=== PATIENT | female | born 1985 | race Caucasian/White ===

== ENCOUNTER → 2016-11-28 | Outpatient (CLI) | payer BC ==
[~2016-11-28] MED LIST: ACET50TA PO; COLA100C PO; IBUP-1114 PO; IBUP600T26 PO; NORC5TAB PO; NORCOTAB PO; PERC5TAB6 PO
[2016-11-28 13:34] LABS: BASO % 0.2 % (0.0-1.0); EOS # 0.2 K/mm3 (0.0-0.50); EOS % 2.4 % (0.0-3.0); LARGE UNSTAINED CELL # 0.1 K/mm3 (0.0-0.4); LARGE UNSTAINED CELL % 0.9 % (0.0-4.0); LYMPH # 0.9 K/mm3 (1.5-4.5); MEAN CORPUSCULAR HEMOGLOBIN 24.3 pg (27.0-33.0); MEAN CORPUSCULAR HGB CONC 31.1 g/dl (32.0-36.5); MEAN CORPUSCULAR VOLUME 78.1 fl (80.0-96.0); MONO # 0.3 K/mm3 (0.0-0.8); MONO % 5.1 % (0.0-5.0); NEUTROPHILS # 5.1 K/mm3 (1.8-7.7); NEUTROPHILS % 78.3 % (36.0-66.0); PLATELET COUNT, AUTOMATED 216 k/mm3 (150-450); RED CELL DISTRIBUTION WIDTH 15.8 % (11.5-14.5); WHITE BLOOD COUNT 6.5 K/mm3 (4.0-10.0)
[2016-11-28 14:27] LABS: HBsAg Prenatal NEGATIVE (NEGATIVE)
[2016-11-28 14:53] LABS: HIV SCREEN CENTAUR NEGATIVE (NEGATIVE)
== END ==
LOC: M SMT 11:43
PROVIDERS: ATTEND Obstetrics & Gynecology
DX: Z36 Encounter for antenatal screening of mother (principal); Z3A.00 Weeks of gestation of pregnancy not specified

== ENCOUNTER → 2017-02-07 | Outpatient (CLI) | payer BC ==
[~2017-02-07] MED LIST changes: -COLA100C PO; +COLA100C3 PO; +NORC1TAB4 PO; -NORC5TAB PO
--- NOTE | 2017-02-08 03:06 | REP ---
Clinical: Anatomical evaluation. Comparison: 12/14/2016 . Findings: Examination demonstrates a single live intrauterine in variable presentation. motion is identified by technologist. Placenta is noted anteriorly and grade zero and 1.3 cm from the closed internal os. Amniotic fluid volume is normal. Cervix measures 3.3 cm in length and appears closed. No evidence for nuchal cord. Gestational age by LMP 19 weeks 1 day with GREG 07/03/2017 . Gestational age by current measurements 20 weeks 0 days with GREG 06/27/2017 . FHR equals 168 beats per minute. Estimated weight 349 grams (>97 percentile). Anatomical assessment demonstrates normal structures including cranium, choroid plexus, cavum, cerebellum/posterior fossa, facial features, lungs, diaphragm, stomach, cord insertion/three-vessel cord, kidneys/bladder, spine, and extremities. Impression: 1. Marginal placenta previa approximately 1.3 cm from the closed internal os. 2. Estimated weight is greater than 97 percentile based on age by LMP. 3. Limited evaluation of the heart/ventricular outflow tracts. Signed by Jorge Harman MD 02/08/2017 02:57 A
== END ==
LOC: M SMT 11:12
PROVIDERS: ATTEND Obstetrics & Gynecology
DX: Z31.430 Encounter of female for testing for genetic disease carrier status for procreative management (principal); Z3A.19 19 weeks gestation of pregnancy

== ENCOUNTER → 2017-02-28 | Outpatient (CLI) | payer BC ==
[~2017-02-28] MED LIST changes: -COLA100C3 PO; +COLA100C5 PO; +IBUP-1022 PO; -IBUP600T26 PO; +IRON65TA PO; +OXYC1TAB23 PO; +PERC5TAB12 PO; -PERC5TAB6 PO; +PREN1TAB11 PO
--- NOTE | 2017-02-28 11:50 | REP ---
Clinical: Anatomical evaluation. Comparison: 02/07/2017 . Findings: Examination demonstrates a single live intrauterine in variable presentation. motion is identified by technologist. Placenta is noted posteriorly and grade zero without evidence for placenta previa or abruption. Amniotic fluid volume is normal. Cervix measures 4.8 cm in length and appears closed. No evidence for nuchal cord. Gestational age by LMP 22 weeks 1 day with GREG 07/03/2017 . Gestational age by current measurements 23 week 6 days with GREG 06/21/2017 . FHR equals 163 beats per minute. Estimated weight 685 grams (90th percentile based on age by current measurements). Anatomical assessment demonstrates normal structures including cranium, choroid plexus, cavum, cerebellum/posterior fossa, facial features, lungs, four-chamber heart/ventricular outflow tracts, diaphragm, stomach, cord insertion/three-vessel cord, kidneys/bladder, spine, and extremities. Impression: 1. Single live intrauterine in variable presentation demonstrating appropriate interval growth when compared to first ultrasound. 2. Anatomical assessment is complete and normal. Signed by Jorge Harman MD 02/28/2017 11:41 A
== END ==
LOC: M RAD 10:31
PROVIDERS: ATTEND Advanced Practice Midwife
DX: Z36 Encounter for antenatal screening of mother (principal); Z3A.23 23 weeks gestation of pregnancy

== ENCOUNTER → 2017-03-28 | Outpatient (CLI) | payer BC ==
[2017-03-28 14:03] LABS: BASO % 0.4 % (0.0-1.0); EOS # 0.3 K/mm3 (0.0-0.50); EOS % 4.1 % (0.0-3.0); LARGE UNSTAINED CELL # 0.1 K/mm3 (0.0-0.4); LARGE UNSTAINED CELL % 1.1 % (0.0-4.0); LYMPH # 0.9 K/mm3 (1.5-4.5); LYMPH % 12.5 % (24.0-44.0); MEAN CORPUSCULAR HEMOGLOBIN 24.7 pg (27.0-33.0); MEAN CORPUSCULAR HGB CONC 31.4 g/dl (32.0-36.5); MEAN CORPUSCULAR VOLUME 78.6 fl (80.0-96.0); MONO # 0.3 K/mm3 (0.0-0.8); MONO % 4.8 % (0.0-5.0); NEUTROPHILS # 5.1 K/mm3 (1.8-7.7); NEUTROPHILS % 77.1 % (36.0-66.0); PLATELET COUNT, AUTOMATED 208 k/mm3 (150-450); RED CELL DISTRIBUTION WIDTH 15.1 % (11.5-14.5); WHITE BLOOD COUNT 6.6 K/mm3 (4.0-10.0)
== END ==
LOC: M SMT 09:05
PROVIDERS: ATTEND Advanced Practice Midwife
DX: Z34.83 Encounter for supervision of other normal pregnancy, third trimester (principal); Z3A.00 Weeks of gestation of pregnancy not specified

== ENCOUNTER → 2017-06-04 | Outpatient (CLI) | payer BC ==
[2017-06-04 20:16] LABS: MEAN CORPUSCULAR HEMOGLOBIN 22.7 pg (27.0-33.0); MEAN CORPUSCULAR HGB CONC 29.5 g/dl (32.0-36.5); MEAN CORPUSCULAR VOLUME 76.8 fl (80.0-96.0); RED CELL DISTRIBUTION WIDTH 16.5 % (11.5-14.5); WHITE BLOOD COUNT 7.1 10^3/uL (4.0-10.0)
== END ==
LOC: M SMT 14:48
PROVIDERS: ATTEND Obstetrics & Gynecology
DX: Z36.0 Encounter for antenatal screening for chromosomal anomalies (principal); Z3A.00 Weeks of gestation of pregnancy not specified

== ENCOUNTER → 2018-09-11 | Outpatient (CLI) | payer OTHER ==
[~2018-09-11] MED LIST changes: -ACET50TA PO; +MAPA500T2 PO
== END ==
LOC: M SMT 10:27
PROVIDERS: ATTEND Advanced Practice Midwife
DX: Z36.89 Encounter for other specified antenatal screening (principal); Z13.79 Encounter for other screening for genetic and chromosomal anomalies

== ENCOUNTER → 2018-10-30 | Outpatient (CLI) | payer OTHER ==
[2018-10-30 18:22] LABS: BASO % 0.2 % (0.0-1.0); EOS # 0.2 10^3/uL (0.0-0.50); EOS % 2.9 % (0.0-3.0); HEMATOCRIT 37.3 % (36.0-47.0); HEMOGLOBIN 12.7 g/dl (12.0-15.5); LYMPH % 12.7 % (24.0-44.0); MEAN CORPUSCULAR HEMOGLOBIN 30.5 pg (27.0-33.0); MEAN CORPUSCULAR VOLUME 89.4 fl (80.0-96.0); MONO # 0.4 10^3/uL (0.0-0.8); MONO % 5.4 % (0.0-5.0); NEUTROPHILS # 6.4 10^3/uL (1.8-7.7); NEUTROPHILS % 78.6 % (36.0-66.0); PLATELET COUNT, AUTOMATED 211 10^3/uL (150-450); RED BLOOD COUNT 4.17 10^6/uL (4.00-5.40); WHITE BLOOD COUNT 8.2 10^3/uL (4.0-10.0)
[2018-10-30 20:37] LABS: CHLAMYDIA DNA AMPLIFICATION NEGATIVE (NEGATIVE); GC DNA AMPLIFICATION NEGATIVE (NEGATIVE)
[2018-10-31 10:31] LABS: HEPATITIS C VIRUS ABY INDEX < 0.0 INDEX (<0.8); HIV 1&2 SCREEN CENTAUR NEGATIVE (NEGATIVE); RUBELLA IgG QUALITATIVE IMMUNE (IMMUNE)
== END ==
LOC: M SMT 13:59
PROVIDERS: ATTEND Advanced Practice Midwife
DX: Z34.81 Encounter for supervision of other normal pregnancy, first trimester (principal)

== ENCOUNTER → 2018-11-12 | Outpatient (CLI) | payer MEDICAID, OTHER ==
--- NOTE | 2018-11-12 15:48 | REP ---
COMPLETE OB ULTRASOUND: 11/12/2018. Clinical history: Second trimester anatomy screen. Findings: No prior study for this . Study shows a single intrauterine gestation in a breech position. Cervix is 2.7 cm long and closed. There is an anterior grade 0 placenta without previa or abruption. Amniotic fluid volume is visually normal. biometry: BPD 4.5 cm 19 weeks 3 days HC 16.2 cm 19 weeks AC 14.9 cm 20 weeks 1 day FL 3.3 cm 20 weeks 1 day. This gives average ultrasound age 19 weeks 5 days with an EDC 04/03/2019. By LMP EDC 04/07/2019. Measurement ratios are all in the normal range. Estimated weight 329 grams or 11 ounces is 84th percentile for dating based on LMP. anatomy: Heart rate was inadvertently not saved, but movement and heart activity was seen. The cranial vault, lateral ventricles, choroid plexus, thalami, cavum septum pellucidum, cerebellum and cisterna magna, face and profile views, lungs, four-chamber heart view and the left ventricular outflow tract were all grossly unremarkable. The right ventricular outflow tract is suboptimally visualized due to the breech position. diaphragm, left-sided stomach bubble, three-vessel cord with the cord insertion, kidneys and bladder, transverse and longitudinal views of the spine and the upper and lower extremities were all grossly unremarkable. Impression: 1. Single intrauterine gestation in breech position with a closed 2.7 cm long cervix, anterior grade 0 placenta without previa abruption and visually normal amniotic fluid volume. 2. The size and dates by today's study 19 weeks 5 days, by LMP 19 weeks 1 day and the estimated weight 84th percentile for that dating. By LMP EDC 04/07/2019. By today's study 04/03/2019. 3. Heart rate inadvertently not saved on imaging, but heart activity seen and movement observed. No visible anomalies but the right ventricular outflow tract is not optimally seen due to breech position. This may be rechecked later in the second trimester. Electronically Signed by Benoit Cummings MD 11/12/2018 09:59 P
== END ==
LOC: M RAD 13:59
PROVIDERS: ATTEND Advanced Practice Midwife
DX: Z34.82 Encounter for supervision of other normal pregnancy, second trimester (principal)

== ENCOUNTER → 2018-11-19 | Outpatient (REF) | payer MEDICAID ==
[2018-11-19 17:46] LABS: INFLUENZA A AMPLIFICATION POSITIVE (NEGATIVE); INFLUENZA B AMPLIFICATION NEGATIVE (NEGATIVE)
== END ==
LOC: M LAB REF 17:08
PROVIDERS: ATTEND Physician Assistant
DX: J11.1 Influenza due to unidentified influenza virus with other respiratory manifestations (principal)

== ENCOUNTER → 2019-03-11 | Outpatient (CLI) | payer MEDICAID ==
[~2019-03-11] MED LIST changes: +FERR325T3 PO; +HYDR-3715 PO; -NORC1TAB4 PO; +NORC1TAB7 PO; -NORCOTAB PO
[2019-03-11 13:28] LABS: HEMATOCRIT 32.8 % (36.0-47.0); HEMOGLOBIN 10.3 g/dl (12.0-15.5); MEAN CORPUSCULAR HEMOGLOBIN 26.9 pg (27.0-33.0); MEAN CORPUSCULAR HGB CONC 31.4 g/dl (32.0-36.5); MEAN CORPUSCULAR VOLUME 85.6 fl (80.0-96.0); PLATELET COUNT, AUTOMATED 169 10^3/uL (150-450); RED BLOOD COUNT 3.83 10^6/uL (4.00-5.40); WHITE BLOOD COUNT 6.6 10^3/uL (4.0-10.0)
== END ==
LOC: M SMT 09:04
PROVIDERS: ATTEND Advanced Practice Midwife
DX: Z34.82 Encounter for supervision of other normal pregnancy, second trimester (principal); Z36.89 Encounter for other specified antenatal screening

== ENCOUNTER → 2019-03-12 | Outpatient (REF) | payer OTHER, MEDICAID | LOC: M LAB REF 17:07 | PROVIDERS: ATTEND Obstetrics & Gynecology | DX: Z34.83 Encounter for supervision of other normal pregnancy, third trimester (principal); Z3A.00 Weeks of gestation of pregnancy not specified ==

== ENCOUNTER → 2019-03-20 | Outpatient (REF) | payer OTHER, MEDICAID | LOC: M LAB REF 16:59 | PROVIDERS: ATTEND Advanced Practice Midwife | DX: Z34.83 Encounter for supervision of other normal pregnancy, third trimester (principal) ==

== ENCOUNTER 2019-03-31 05:29 | Inpatient (IN) | payer OTHER, SELFPAY ==
[2019-03-31] VITALS (8 sets, daily range): BP systolic 91–122; BP diastolic 53–75
[~2019-03-31] VITALS: Ht 167.6 cm; Wt 81.4 kg
[2019-03-31] MEDS ORDERED: LR 1,000 ML IV ONE ×2 (06:30→21:15)
[2019-03-31] MEDS ORDERED: LR 1,000 ML IV SCH (06:30)
[2019-03-31] MEDS ORDERED: BICITRA 30ML SOLN UDC PO ONE (06:30)
[2019-03-31 06:40] LABS: BASO % 0.4 % (0.0-1.0); EOS # 0.2 10^3/uL (0.0-0.50); EOS % 3.2 % (0.0-3.0); HEMATOCRIT 32.4 % (36.0-47.0); HEMOGLOBIN 10.6 g/dl (12.0-15.5); LYMPH # 1.2 10^3/uL (1.5-4.5); LYMPH % 16.5 % (24.0-44.0); MEAN CORPUSCULAR HEMOGLOBIN 27.2 pg (27.0-33.0); MEAN CORPUSCULAR HGB CONC 32.7 g/dl (32.0-36.5); MEAN CORPUSCULAR VOLUME 83.3 fl (80.0-96.0); MONO # 0.5 10^3/uL (0.0-0.8); NEUTROPHILS # 5.4 10^3/uL (1.8-7.7); NEUTROPHILS % 72.1 % (36.0-66.0); PLATELET COUNT, AUTOMATED 169 10^3/uL (150-450); RED BLOOD COUNT 3.89 10^6/uL (4.00-5.40); WHITE BLOOD COUNT 7.4 10^3/uL (4.0-10.0)
[2019-03-31] MEDS ORDERED: OXYTOCIN INJ 10 UNITS/ML VIAL (J2590) As Ordered ONE (07:13)
[2019-03-31] MEDS ORDERED: MORPHINE PRES-FREE INJ 10 MG/10 ML VIAL (J2274) As Ordered ONE (07:13)
[2019-03-31] MEDS ORDERED: ePHEDrine SULFATE 25 MG/5 ML(5MG/ML) SYRINGE As Ordered ONE (07:52)
[2019-03-31] MEDS ORDERED: PHENYLephrine HCL 500 MCG/5 ML (100MCG/ML) SYRINGE (J2370) As Ordered ONE ×2 (07:52→07:56)
[2019-03-31] MEDS ORDERED: KETOROLAC 60 MG/2 ML VIAL (J1885) As Ordered ONE (08:10)
[2019-03-31] MEDS ORDERED: ONDANSETRON 4MG/2ML VIAL (J2405) As Ordered ONE (08:10)
[2019-03-31] MEDS ORDERED: OXYTOCIN DRIP 30 UNITS in APPROPRIATE DILUENT 1 EA IV SCH (08:41)
[2019-03-31] MEDS ORDERED: RHOGAM 300 MCG (1500 IU) INJ (J2790) IM SCH (08:45)
[2019-03-31] MEDS ORDERED: ONDANSETRON 4MG/2ML VIAL (J2405) IV PRN (08:45)
[2019-03-31] MEDS ORDERED: PERCOCET 5MG/325MG TAB PO PRN (08:45)
[2019-03-31] MEDS ORDERED: PROMETHAZINE 25 MG TAB PO PRN (08:45)
[2019-03-31] MEDS ORDERED: MEASLES,MUMPS,RUBELLA VACCINE INJ (MMR-II) (90707) SC SCH (08:45)
[2019-03-31] MEDS ORDERED: ACETAMINOPHEN 500 MG TAB PO PRN (08:45)
[2019-03-31] MEDS ORDERED: OXYTOCIN 30 UNITS IN 0.9% NaCl 500ML IV BAG (J2590) As Ordered ONE (08:49)
[2019-03-31] MEDS: DOCUSATE SODIUM 100 MG CAP PO SCH ×2 (09:00→20:31)
[2019-03-31] MEDS: PRENATAL VITAMINS CHEWABLE TABLET PO SCH (09:00)
[2019-03-31] MEDS: LR 1,000 ML IV SCH ×2 (09:35→15:58)
[2019-03-31] MEDS: KETOROLAC 30 MG/ML VIAL (J1885) IV SCH ×2 (15:00→20:32)
[2019-04-01 02:00] VITALS: BP 96/58
[2019-04-01] MEDS: KETOROLAC 30 MG/ML VIAL (J1885) IV SCH (02:44)
[2019-04-01 06:00] VITALS: BP 104/62
[2019-04-01] MEDS: LR 1,000 ML IV SCH (06:04)
[2019-04-01 07:20] LABS: HEMATOCRIT 25.6 % (36.0-47.0); MEAN CORPUSCULAR HEMOGLOBIN 26.6 pg (27.0-33.0); MEAN CORPUSCULAR HGB CONC 31.3 g/dl (32.0-36.5); PLATELET COUNT, AUTOMATED 108 10^3/uL (150-450); RED BLOOD COUNT 3.01 10^6/uL (4.00-5.40); WHITE BLOOD COUNT 5.6 10^3/uL (4.0-10.0)
[2019-04-01 10:00] VITALS: BP 113/64
[2019-04-01] MEDS: DOCUSATE SODIUM 100 MG CAP PO SCH ×2 (10:43→20:43)
[2019-04-01] MEDS: PRENATAL VITAMINS CHEWABLE TABLET PO SCH (10:43)
[2019-04-01] MEDS: IBUPROFEN 800 MG TAB PO SCH ×2 (10:44→18:48)
[2019-04-01] MEDS: PERCOCET 5MG/325MG TAB PO PRN ×2 (12:26→20:43)
[2019-04-01 14:00] VITALS: BP 106/56
[2019-04-01] MEDS ORDERED: COLA100C5 PO (15:31)
[2019-04-01] MEDS ORDERED: PERCOCET PO (15:31)
[2019-04-01] MEDS ORDERED: IBUP80TA PO (15:31)
[2019-04-01 18:00] VITALS: BP 108/56
[2019-04-01 22:00] VITALS: BP 106/67
[2019-04-02 02:00] VITALS: BP 106/55
[2019-04-02] MEDS: IBUPROFEN 800 MG TAB PO SCH ×2 (03:23→11:07)
[2019-04-02 06:00] VITALS: BP 99/58
--- NOTE | 2019-04-02 07:21 | DSES ---
DATE OF ADMISSION: 03/31/2019 DATE OF DISCHARGE: DISCHARGE DIAGNOSIS: Repeat section at term, stable condition postoperative day two. SURGEON: Dr. Martell Walsh DINKEY DISPATCHER: Dr. Abigail Rodriguez HISTORY: Carmen was admitted for a repeat section at 39+ weeks gestation. The surgery was uncomplicated. She has been out of bed for self care, yasmani care and care. She is voiding without difficulty and passing flatus. His pain has been well controlled with by mouth pain medications. She denies any dizziness, palpitations, chest heaviness or shortness of breath. She is tolerating a regular diet and requests discharge home today. OBJECTIVE: Vital Signs: 99.7, 73, 18, BP 99/58. Preop CBC hemoglobin 10.6, hematocrit 32.4 and platelets 169. Postop CBC hemoglobin 8.0, hematocrit 25.6 and platelets 108. She is alert and oriented times three. She does not appear uncomfortable. Her breasts are soft and nontender. Nipples are intact. There is no cracks and no bleeding. Her abdomen with fundus firm at one fingerbreadth below umbilicus. Her incision dressing is dry and intact. There appears to be no drainage. Perineum intact with lochia rubra scant. Bilateral lower extremities negative for edema. PLAN: Discharge the patient home today. She is to follow up at [facility] for a 2-week incision check and an 8-week visit. Prescriptions for her pain medications have been E-prescribed by Dr. Maretll Walsh. I did review discharge instructions that include breast care, incision care, yasmani care, pelvic rest, activity and lifting restrictions, danger signs to report to her provider, and access to care. The patient has had all her questions answered and desires discharge.
[2019-04-02] MEDS: PRENATAL VITAMINS CHEWABLE TABLET PO SCH (08:09)
[2019-04-02] MEDS: DOCUSATE SODIUM 100 MG CAP PO SCH (08:10)
== END 2019-04-02 11:40 | disposition home or self-care (01) | DRG 540 ==
LOC: M LDI 05:29 → M OBS 10:08
PROVIDERS: ADMIT Obstetrics & Gynecology; ATTEND Obstetrics & Gynecology
PROC: 10D00Z1 Extraction of Products of Conception, Low, Open Approach (ICD-10-PCS; principal; 2019-03-31 07:30)
DX: O34.211 Maternal care for low transverse scar from previous cesarean delivery (principal); Z37.0 Single live birth; Z3A.39 39 weeks gestation of pregnancy